=== PATIENT | female | born 1965 | race Caucasian/White ===

== ENCOUNTER 2019-10-27 14:54 | Outpatient (REF) | payer SELFPAY ==
[2019-10-27 21:12] LABS: Estmated Average Glucose 111; Hemoglobin A1C 5.5 % (4.0-6.0)
[2019-10-27 21:35] LABS: Chol HDL Ratio 4.72 mg/dL (0.0-4.40); Cholesterol 203 mg/dL (0-200); Glucose 107 mg/dL (65-115); HDL Cholesterol 43 mg/dL (60-100); LDL Cholesterol Calculated 135 mg/dL (50-129); LDL HDL Ratio 3.14 RATIO (0.00-3.22); Triglycerides 127 mg/dL (0-150)
== END 2019-10-27 14:55 | disposition home or self-care (01) ==
LOC: LAB 14:54
PROVIDERS: Visit Provider Dermatology
DX: Z13.9 Encounter for screening, unspecified (principal)
CPT/HCPCS: 80061; 82947; 83036; 85025